=== PATIENT | female | born 1940 | race Caucasian/White ===

== ENCOUNTER 2018-08-24 11:21 | Inpatient (IN) | payer MEDICAID, MEDICARE ==
[2018-08-24] MEDS: ONDANSETRON 4 MG INJ IV (16:23)
[2018-08-24 16:24] LABS: URINE BLOOD (Dip) POC Trace-lysed (NEGATIVE); URINE KETONES (Dip) POC Negative (NEGATIVE); URINE LEUKOCYTE EST (Dip) POC Negative (NEGATIVE); URINE NITRITE (Dip) POC Negative (NEGATIVE); URINE TOTAL PROTEIN POC 3+ (NEGATIVE)
[2018-08-24] MEDS: SOD CHLORIDE 0.9% 500 ML IV (16:55)
[2018-08-24] MEDS ORDERED: HYDROCODONE/APAP (5/325) TAB PO (20:00)
[2018-08-24] MEDS ORDERED: ACETAMINOPHEN 325 MG TAB PO (20:00)
[2018-08-24] MEDS ORDERED: GLUCOSE GEL 15 GRAM TUBE PO ×2 (20:00)
[2018-08-24] MEDS ORDERED: GLUCOSE GEL 15 GRAM TUBE BUCCAL (20:00)
[2018-08-24] MEDS ORDERED: DEXTROSE 50% 50 ML SYRINGE IV ×2 (20:00)
[2018-08-24] MEDS ORDERED: GLUCAGON 1 MG INJ IM (20:00)
[2018-08-24] MEDS: SOD CHLORIDE 0.9% 1,000 ML IV (20:00)
[2018-08-24] MEDS ORDERED: NACL 0.9% 3 ML SYG IV (20:00)
[2018-08-24] MEDS ORDERED: ONDANSETRON 4 MG INJ IV (20:00)
[2018-08-24 20:31] LABS: PHOSPHORUS 6.4 mg/dl (2.5-4.9)
[2018-08-24] MEDS: FAMOTIDINE 20 MG INJ IV (21:28)
[2018-08-24 21:33] LABS: TROPONIN-I 0.697 ng/ml (0.000-0.120)
[2018-08-24] MEDS ORDERED: HEPARIN 1000 UNITS/ML 10 ML INJ IV (22:00)
[2018-08-24 22:26] LABS: ADD MAN DIFF? NO
[2018-08-24 22:31] LABS: WHITE BLOOD COUNT 5.9 10^3/ul (4.8-10.8)
[2018-08-24 22:31] LABS: BASOPHILS % 0.2 % (0.0-2.0); EOSINOPHILS % 0.2 % (0.0-7.0); HEMATOCRIT 29.1 % (37.0-47.0); HEMOGLOBIN 10.6 g/dl (12.0-16.0); LYMPHOCYTES # 1.1 10^3/ul (0.8-2.9); MEAN CORPUSCULAR HGB CONC 36.4 g/dl (32.0-37.0); MEAN CORPUSCULAR VOLUME 90.7 fl (82.0-101.0); MEAN PLATELET VOLUME 9.2 fl (7.4-10.4); MONOCYTE # 0.6 10^3/ul (0.3-0.9); MONOCYTES % 10.8 % (0.0-11.0); NEUTROPHIL # 4.1 10^3/ul (1.6-7.5); NEUTROPHILS % 69.5 % (39.0-77.0); PLATELET COUNT 157 10^3/UL (140-415); RED BLOOD COUNT 3.21 10^6/ul (4.20-5.40); RED CELL DISTRIBUTION WIDTH 12.1 % (11.5-14.5)
[2018-08-24 22:46] LABS: INR 0.96; PROTIME 12.9 Sec (11.9-14.9)
[2018-08-24 22:47] LABS: PARTIAL THROMBOPLASTIN TIME 26.4 Sec (23.0-35.0)
[2018-08-24] MEDS: ATORVASTATIN 80 MG TAB PO (23:39)
[2018-08-24] MEDS: ASPIRIN 81 MG TAB PO (23:39)
[2018-08-25 00:18] LABS: ANION GAP 12 (5-13); BLOOD UREA NITROGEN 57 mg/dl (7-20); CALCIUM 8.4 mg/dl (8.4-10.2); CARBON DIOXIDE 16 mmol/L (21-31); CHLORIDE 90 mmol/L (97-110); GLUCOSE 195 mg/dl (70-220); POTASSIUM 5.4 mmol/L (3.5-5.1)
[2018-08-25 00:22] LABS: SODIUM 118 mmol/L (135-144)
[2018-08-25 00:27] LABS: CREATININE 5.94 mg/dl (0.44-1.00)
[2018-08-25] MEDS: HEPARIN 1000 UNITS/ML 10 ML INJ IV (00:58)
[2018-08-25] MEDS: HEPARIN 25000 UNITS/250 ML 250 ML IV (00:59)
[2018-08-25 01:00] LABS: CK-MB 2.65 ng/ml (0.0-2.4)
[2018-08-25 01:03] LABS: TROPONIN-I 0.619 ng/ml (0.000-0.120)
[2018-08-25] MEDS: INSULIN ASPART [NOVOLOG] 3 ML PEN SC ×5 (01:06→22:02)
[2018-08-25] MEDS: SODIUM POLYSTYRENE 15 GM KIT (POWDER + SORBITOL) PO (01:12)
[2018-08-25] MEDS: ACCU-CHEK XX (02:00)
[2018-08-25 03:53] LABS: HEMATOCRIT 28.5 % (37.0-47.0); HEMOGLOBIN 10.5 g/dl (12.0-16.0)
[2018-08-25 04:26] LABS: HEMOGLOBIN A1C 10.1 % (0-5.9)
[2018-08-25 06:05] LABS: ADD UMIC YES; UR ASCORBIC ACID NEGATIVE (NEGATIVE); UR BILIRUBIN (Dip) NEGATIVE (NEGATIVE); UR BLOOD (Dip) 2+ mg/dL (NEGATIVE); UR CLARITY CLEAR (CLEAR); UR COLOR STRAW (YELLOW); UR GLUCOSE (Dip) 2+ mg/dL (NEGATIVE); UR KETONES (Dip) NEGATIVE (NEGATIVE); UR LEUKOCYTE ESTERASE (Dip) NEGATIVE Leu/ul (NEGATIVE); UR NITRITE (Dip) NEGATIVE (NEGATIVE); UR RBC 1 /HPF (0-5); UR SPECIFIC GRAVITY (Dip) 1.006 (1.003-1.030); UR TOTAL PROTEIN (Dip) 2+ mg/dl (NEGATIVE); UR UROBILINOGEN (Dip) NEGATIVE (NEGATIVE); UR WBC 1 /HPF (0-5)
[2018-08-25 06:42] LABS: LIPASE 377 U/L (23-300)
[2018-08-25 06:44] LABS: ALANINE AMINOTRANSFERASE 10 IU/L (13-69); ALBUMIN 3.3 g/dl (3.3-4.9); ALBUMIN/GLOBULIN RATIO 0.97; ALKALINE PHOSPHATASE 51 IU/L (42-121); ANION GAP 13 (5-13); ASPARTATE AMINO TRANSFERASE 26 IU/L (15-46); BILIRUBIN,INDIRECT 0.2 mg/dl (0-1.1); BILIRUBIN,TOTAL 0.2 mg/dl (0.2-1.3); BLOOD UREA NITROGEN 58 mg/dl (7-20); CALCIUM 8.3 mg/dl (8.4-10.2); CARBON DIOXIDE 15 mmol/L (21-31); CHLORIDE 93 mmol/L (97-110); GLUCOSE 141 mg/dl (70-220); MAGNESIUM 1.6 mg/dl (1.7-2.5); POTASSIUM 4.7 mmol/L (3.5-5.1); SODIUM 121 mmol/L (135-144); TOTAL PROTEIN 6.7 g/dl (6.1-8.1)
[2018-08-25 06:48] LABS: OCCULT BLOOD STOOL NEGATIVE (NEGATIVE)
[2018-08-25 06:51] LABS: TROPONIN-I 0.506 ng/ml (0.000-0.120)
[2018-08-25] MEDS ORDERED: ASPIRIN 81 MG TAB PO (09:00)
[2018-08-25 09:12] LABS: CREATININE,URINE RANDOM 25.41 mg/dl (20-320)
[2018-08-25 09:12] LABS: SODIUM,URINE RANDOM 23 mmol/L (30-90)
[2018-08-25] MEDS: SOD CHLORIDE 0.9% 1,000 ML IV ×2 (10:23→23:44)
[2018-08-25 11:00] LABS: CHOLESTEROL 206 mg/dl (100-200)
[2018-08-25 11:00] LABS: CHOL/HDL RATIO 4.4 RATIO; HDL CHOLESTEROL 46 mg/dl (33-92); LDL CHOLESTEROL,CALCULATED 116 mg/dl; TRIGLYCERIDES 222 mg/dl (0-149)
[2018-08-25] MEDS: INSULIN GLARGINE [LANTus] (100 UNITS/ML) SYG SC (12:13)
[2018-08-25] MEDS: LABETALOL HCL 20MG INJ IV ×2 (14:46→23:52)
[2018-08-25] MEDS ORDERED: NYSTATIN 30 GM POWDER BTL TOP (17:00)
[2018-08-25] MEDS: PANTOPRAZOLE 40 MG INJ IV (17:31)
[2018-08-25] MEDS: HEPARIN 5,000 UNIT/1 ML VIAL SC (22:01)
[2018-08-25] MEDS: ATORVASTATIN 80 MG TAB PO (22:11)
[2018-08-25] MEDS: MAGNESIUM OXIDE 400 MG TAB PO (23:44)
[2018-08-26] MEDS ORDERED: hydrALAzine 20 MG INJ IV (02:00)
[2018-08-26] MEDS: ACCU-CHEK XX (03:00)
[2018-08-26] MEDS: traZODone 50 MG TAB PO (03:23)
[2018-08-26 05:15] LABS: ADD MAN DIFF? NO
[2018-08-26 05:22] LABS: CREATINE KINASE 109 IU/L (23-200)
[2018-08-26 05:23] LABS: WHITE BLOOD COUNT 6.8 10^3/ul (4.8-10.8)
[2018-08-26 05:23] LABS: BASOPHILS % 0.1 % (0.0-2.0); EOSINOPHILS # 0.1 10^3/ul (0.0-0.5); EOSINOPHILS % 0.9 % (0.0-7.0); HEMATOCRIT 27.5 % (37.0-47.0); LYMPHOCYTES # 1.4 10^3/ul (0.8-2.9); LYMPHOCYTES % 20.1 % (15.0-51.0); MEAN CORPUSCULAR HEMOGLOBIN 32.7 pg (29.0-33.0); MEAN CORPUSCULAR VOLUME 89.9 fl (82.0-101.0); MONOCYTE # 0.7 10^3/ul (0.3-0.9); MONOCYTES % 10.2 % (0.0-11.0); NEUTROPHIL # 4.6 10^3/ul (1.6-7.5); NEUTROPHILS % 68.4 % (39.0-77.0); PLATELET COUNT 147 10^3/UL (140-415); RED BLOOD COUNT 3.06 10^6/ul (4.20-5.40); RED CELL DISTRIBUTION WIDTH 12.4 % (11.5-14.5)
[2018-08-26 05:29] LABS: ANION GAP 20 (5-13); BLOOD UREA NITROGEN 55 mg/dl (7-20); CALCIUM 7.7 mg/dl (8.4-10.2); CARBON DIOXIDE 14 mmol/L (21-31); CHLORIDE 88 mmol/L (97-110); CREATININE 6.84 mg/dl (0.44-1.00); GLUCOSE 101 mg/dl (70-220); MAGNESIUM 1.4 mg/dl (1.7-2.5); PHOSPHORUS 9.1 mg/dl (2.5-4.9); POTASSIUM 3.7 mmol/L (3.5-5.1); SODIUM 122 mmol/L (135-144)
[2018-08-26] MEDS: PANTOPRAZOLE 40 MG INJ IV ×2 (05:34→17:11)
[2018-08-26 05:35] LABS: CK INDEX 2.2; CK-MB 2.37 ng/ml (0.0-2.4)
[2018-08-26 05:58] LABS: TROPONIN-I 0.137 ng/ml (0.000-0.120)
[2018-08-26 06:11] LABS: MEAN CORPUSCULAR HGB CONC 36.4 g/dl (32.0-37.0)
[2018-08-26] MEDS: INSULIN ASPART [NOVOLOG] 3 ML PEN SC ×4 (07:58→21:00)
[2018-08-26] MEDS: INSULIN GLARGINE [LANTus] (100 UNITS/ML) SYG SC (08:01)
[2018-08-26] MEDS: HEPARIN 5,000 UNIT/1 ML VIAL SC ×2 (08:01→21:31)
[2018-08-26 09:33] LABS: AADO2 Arterial 25.7 mmHg (7.0-24.0); Allen Test ACCEPTAB; Arterial Base Excess -8.3 mmol/L (-3.0-3); Arterial Blood Gas Oxygen Sat 96.1 mmHG (95.0-100.0); Arterial COHb 0.3 % (0.0-3.0); Arterial Fraction of Oxyhgb 95.6 % (93.0-99.0); Arterial HCO3 15.5 mmol/L (22.0-26.0); Arterial MetHb 0.2 % (0.0-1.5); Arterial pCO2 26.6 mmhg (35-45); MODE ROOM AIR; Site Right Radial
[2018-08-26] MEDS: INFLUENZA VIRUS VACCINE 0.5 ML (DISPENSING) IM* (10:00)
[2018-08-26] MEDS: MAGNESIUM SULFATE 1 GM/D5W 100 ML IVPB (11:33)
[2018-08-26] MEDS: NIFEdipine (XL) 30 MG TAB PO ×2 (11:34→21:35)
[2018-08-26] MEDS: SEVELAMER CARBONATE 800 MG TABLET PO ×2 (12:03→17:11)
[2018-08-26] MEDS: SOD CHLORIDE 0.9% 1,000 ML IV (14:38)
[2018-08-26 17:13] LABS: CREATININE, RANDOM URINE 27 mg/dL (20-275); MICROALBUMIN 33.8 mg/dL; MICROALBUMIN/CREATININE RATIO 1252 (<30)
[2018-08-26] MEDS: ATORVASTATIN 80 MG TAB PO (21:34)
[2018-08-27] MEDS: ACCU-CHEK XX (02:00)
[2018-08-27] MEDS: SOD CHLORIDE 0.9% 1,000 ML IV ×2 (05:09→21:20)
[2018-08-27] MEDS: PANTOPRAZOLE 40 MG INJ IV (05:09)
[2018-08-27 05:53] LABS: ADD MAN DIFF? NO
[2018-08-27 05:57] LABS: BASOPHILS % 0.2 % (0.0-2.0); EOSINOPHILS # 0.1 10^3/ul (0.0-0.5); EOSINOPHILS % 2.7 % (0.0-7.0); HEMATOCRIT 27.3 % (37.0-47.0); LYMPHOCYTES # 1.2 10^3/ul (0.8-2.9); LYMPHOCYTES % 27.7 % (15.0-51.0); MEAN CORPUSCULAR HEMOGLOBIN 32.5 pg (29.0-33.0); MEAN CORPUSCULAR HGB CONC 36.6 g/dl (32.0-37.0); MEAN CORPUSCULAR VOLUME 88.6 fl (82.0-101.0); MEAN PLATELET VOLUME 10.8 fl (7.4-10.4); MONOCYTE # 0.5 10^3/ul (0.3-0.9); MONOCYTES % 10.6 % (0.0-11.0); NEUTROPHIL # 2.6 10^3/ul (1.6-7.5); NEUTROPHILS % 58.3 % (39.0-77.0); PLATELET COUNT 163 10^3/UL (140-415); RED BLOOD COUNT 3.08 10^6/ul (4.20-5.40); RED CELL DISTRIBUTION WIDTH 12.5 % (11.5-14.5)
[2018-08-27 05:57] LABS: WHITE BLOOD COUNT 4.4 10^3/ul (4.8-10.8)
[2018-08-27 06:34] LABS: ANION GAP 17 (5-13); BLOOD UREA NITROGEN 50 mg/dl (7-20); CALCIUM 7.4 mg/dl (8.4-10.2); CARBON DIOXIDE 16 mmol/L (21-31); CHLORIDE 91 mmol/L (97-110); GLUCOSE 83 mg/dl (70-220); MAGNESIUM 1.9 mg/dl (1.7-2.5); PHOSPHORUS 8.3 mg/dl (2.5-4.9); POTASSIUM 3.4 mmol/L (3.5-5.1); SODIUM 124 mmol/L (135-144)
[2018-08-27] MEDS: SEVELAMER CARBONATE 800 MG TABLET PO ×3 (07:44→17:14)
[2018-08-27] MEDS: INSULIN ASPART [NOVOLOG] 3 ML PEN SC ×4 (07:47→20:40)
[2018-08-27] MEDS: INSULIN GLARGINE [LANTus] (100 UNITS/ML) SYG SC (07:49)
[2018-08-27] MEDS: NIFEdipine (XL) 30 MG TAB PO ×2 (08:53→20:40)
[2018-08-27] MEDS: POTASSIUM CHLORIDE (SR) 20 MEQ TAB PO (08:53)
[2018-08-27] MEDS: HEPARIN 5,000 UNIT/1 ML VIAL SC ×2 (08:58→20:45)
[2018-08-27] MEDS: ASPIRIN (EC) 81 MG TAB PO (09:47)
[2018-08-27] MEDS: PANTOPRAZOLE (EC) 40 MG TAB PO (17:14)
[2018-08-27 18:28] LABS: HEPATITIS B SURFACE ANTIGEN NEGATIVE (NEGATIVE)
[2018-08-27 18:45] LABS: HEPATITIS B SURFACE ANTIBODY NEGATIVE (NEGATIVE)
[2018-08-27] MEDS: ATORVASTATIN 80 MG TAB PO (20:40)
[2018-08-27] MEDS: LIDOCAINE 1% (MPF) 5 ML VIAL (20:46)
[2018-08-27] MEDS: HEPARIN 1000 UNITS/ML 10 ML INJ (20:47)
[2018-08-28] MEDS: ACCU-CHEK XX (02:00)
[2018-08-28] MEDS: PANTOPRAZOLE (EC) 40 MG TAB PO ×2 (06:18→17:09)
[2018-08-28 06:21] LABS: ADD MAN DIFF? NO
[2018-08-28 06:24] LABS: WHITE BLOOD COUNT 4.8 10^3/ul (4.8-10.8)
[2018-08-28 06:24] LABS: BASOPHILS % 0.4 % (0.0-2.0); EOSINOPHILS # 0.1 10^3/ul (0.0-0.5); EOSINOPHILS % 2.7 % (0.0-7.0); HEMATOCRIT 30.7 % (37.0-47.0); HEMOGLOBIN 10.9 g/dl (12.0-16.0); LYMPHOCYTES # 1.2 10^3/ul (0.8-2.9); LYMPHOCYTES % 25.2 % (15.0-51.0); MEAN CORPUSCULAR HEMOGLOBIN 32.3 pg (29.0-33.0); MEAN CORPUSCULAR HGB CONC 35.5 g/dl (32.0-37.0); MEAN CORPUSCULAR VOLUME 91.1 fl (82.0-101.0); MEAN PLATELET VOLUME 10.3 fl (7.4-10.4); MONOCYTE # 0.6 10^3/ul (0.3-0.9); MONOCYTES % 11.7 % (0.0-11.0); NEUTROPHIL # 2.9 10^3/ul (1.6-7.5); NEUTROPHILS % 59.4 % (39.0-77.0); PLATELET COUNT 191 10^3/UL (140-415); RED BLOOD COUNT 3.37 10^6/ul (4.20-5.40); RED CELL DISTRIBUTION WIDTH 12.5 % (11.5-14.5)
[2018-08-28 06:58] LABS: ANION GAP 12 (5-13)
[2018-08-28 07:00] LABS: BLOOD UREA NITROGEN 29 mg/dl (7-20); CARBON DIOXIDE 22 mmol/L (21-31); CHLORIDE 96 mmol/L (97-110); CREATININE 4.66 mg/dl (0.44-1.00); GLUCOSE 96 mg/dl (70-220); MAGNESIUM 1.8 mg/dl (1.7-2.5); PHOSPHORUS 3.9 mg/dl (2.5-4.9); POTASSIUM 3.9 mmol/L (3.5-5.1); SODIUM 130 mmol/L (135-144)
[2018-08-28] MEDS: INSULIN ASPART [NOVOLOG] 3 ML PEN SC ×4 (07:38→21:00)
[2018-08-28] MEDS: SEVELAMER CARBONATE 800 MG TABLET PO ×3 (07:39→17:09)
[2018-08-28] MEDS: INSULIN GLARGINE [LANTus] (100 UNITS/ML) SYG SC (07:43)
[2018-08-28] MEDS: NIFEdipine (XL) 30 MG TAB PO ×2 (09:00→21:51)
[2018-08-28] MEDS: ASPIRIN (EC) 81 MG TAB PO (10:02)
[2018-08-28] MEDS: HEPARIN 5,000 UNIT/1 ML VIAL SC ×2 (10:06→22:02)
[2018-08-28] MEDS: ATORVASTATIN 80 MG TAB PO (21:50)
[2018-08-29] MEDS: ACCU-CHEK XX (02:00)
[2018-08-29] MEDS: PANTOPRAZOLE (EC) 40 MG TAB PO ×2 (05:31→17:03)
[2018-08-29 06:20] LABS: ADD MAN DIFF? NO
[2018-08-29 06:32] LABS: WHITE BLOOD COUNT 5.7 10^3/ul (4.8-10.8)
[2018-08-29 06:32] LABS: BASOPHILS % 0.5 % (0.0-2.0); EOSINOPHILS # 0.1 10^3/ul (0.0-0.5); EOSINOPHILS % 2.3 % (0.0-7.0); HEMATOCRIT 29.5 % (37.0-47.0); HEMOGLOBIN 10.3 g/dl (12.0-16.0); LYMPHOCYTES # 1.2 10^3/ul (0.8-2.9); LYMPHOCYTES % 20.1 % (15.0-51.0); MEAN CORPUSCULAR HEMOGLOBIN 32.7 pg (29.0-33.0); MEAN CORPUSCULAR HGB CONC 34.9 g/dl (32.0-37.0); MEAN CORPUSCULAR VOLUME 93.7 fl (82.0-101.0); MEAN PLATELET VOLUME 10.2 fl (7.4-10.4); MONOCYTE # 0.6 10^3/ul (0.3-0.9); MONOCYTES % 11.2 % (0.0-11.0); NEUTROPHIL # 3.8 10^3/ul (1.6-7.5); NEUTROPHILS % 65.7 % (39.0-77.0); PLATELET COUNT 217 10^3/UL (140-415); RED BLOOD COUNT 3.15 10^6/ul (4.20-5.40); RED CELL DISTRIBUTION WIDTH 12.6 % (11.5-14.5)
[2018-08-29 06:34] LABS: ANION GAP 12 (5-13); BLOOD UREA NITROGEN 21 mg/dl (7-20); CALCIUM 8.6 mg/dl (8.4-10.2); CARBON DIOXIDE 27 mmol/L (21-31); CHLORIDE 96 mmol/L (97-110); CREATININE 3.81 mg/dl (0.44-1.00); GLUCOSE 149 mg/dl (70-220); MAGNESIUM 1.9 mg/dl (1.7-2.5); PHOSPHORUS 3.2 mg/dl (2.5-4.9); POTASSIUM 3.9 mmol/L (3.5-5.1); SODIUM 135 mmol/L (135-144)
[2018-08-29] MEDS: SEVELAMER CARBONATE 800 MG TABLET PO ×3 (07:37→17:03)
[2018-08-29] MEDS: INSULIN GLARGINE [LANTus] (100 UNITS/ML) SYG SC (07:51)
[2018-08-29] MEDS: INSULIN ASPART [NOVOLOG] 3 ML PEN SC ×5 (07:52→21:00)
[2018-08-29] MEDS: ASPIRIN (EC) 81 MG TAB PO (08:40)
[2018-08-29] MEDS: NIFEdipine (XL) 30 MG TAB PO ×2 (08:40→21:00)
[2018-08-29] MEDS: HEPARIN 5,000 UNIT/1 ML VIAL SC ×2 (08:46→22:12)
[2018-08-29] MEDS ORDERED: HEPARIN 1000 UNITS/ML 10 ML INJ CATHETER (20:00)
[2018-08-29] MEDS: ATORVASTATIN 80 MG TAB PO (22:06)
[2018-08-29] MEDS: SENNA/DOCUSATE NA (8.6MG/50MG) TAB PO (22:06)
[2018-08-29] MEDS: HEPARIN 1000 UNITS/ML 10 ML INJ CATHETER (22:55)
[2018-08-30] MEDS: ACCU-CHEK XX (00:04)
[2018-08-30 05:08] LABS: ADD MAN DIFF? NO; HAAIG REFLEX REFLEX FILED
[2018-08-30 05:21] LABS: WHITE BLOOD COUNT 8.7 10^3/ul (4.8-10.8)
[2018-08-30 05:21] LABS: BASOPHILS % 0.3 % (0.0-2.0); EOSINOPHILS # 0.2 10^3/ul (0.0-0.5); EOSINOPHILS % 1.7 % (0.0-7.0); HEMATOCRIT 29.4 % (37.0-47.0); HEMOGLOBIN 10.1 g/dl (12.0-16.0); LYMPHOCYTES # 1.6 10^3/ul (0.8-2.9); LYMPHOCYTES % 18.6 % (15.0-51.0); MEAN CORPUSCULAR HEMOGLOBIN 32.5 pg (29.0-33.0); MEAN CORPUSCULAR HGB CONC 34.4 g/dl (32.0-37.0); MEAN CORPUSCULAR VOLUME 94.5 fl (82.0-101.0); MEAN PLATELET VOLUME 9.9 fl (7.4-10.4); MONOCYTE # 0.7 10^3/ul (0.3-0.9); MONOCYTES % 8.5 % (0.0-11.0); NEUTROPHIL # 6.1 10^3/ul (1.6-7.5); NEUTROPHILS % 70.6 % (39.0-77.0); PLATELET COUNT 220 10^3/UL (140-415); RED BLOOD COUNT 3.11 10^6/ul (4.20-5.40); RED CELL DISTRIBUTION WIDTH 12.4 % (11.5-14.5)
[2018-08-30 05:46] LABS: ANION GAP 11 (5-13); BLOOD UREA NITROGEN 15 mg/dl (7-20); CALCIUM 8.9 mg/dl (8.4-10.2); CARBON DIOXIDE 30 mmol/L (21-31); CHLORIDE 96 mmol/L (97-110); CREATININE 2.41 mg/dl (0.44-1.00); GLUCOSE 193 mg/dl (70-220); MAGNESIUM 1.8 mg/dl (1.7-2.5); POTASSIUM 3.8 mmol/L (3.5-5.1); SODIUM 137 mmol/L (135-144)
[2018-08-30 06:11] LABS: HEPATITIS B SURFACE ANTIGEN NEGATIVE (NEGATIVE)
[2018-08-30] MEDS: PANTOPRAZOLE (EC) 40 MG TAB PO ×2 (06:13→17:41)
[2018-08-30 06:28] LABS: HEPATITIS C VIRAL ANTIBODY NEGATIVE (NEGATIVE)
[2018-08-30 07:37] LABS: HEPATITIS B CORE ANTIBODY NEGATIVE (NEGATIVE)
[2018-08-30] MEDS: INSULIN ASPART [NOVOLOG] 3 ML PEN SC ×7 (08:11→20:49)
[2018-08-30] MEDS: INSULIN GLARGINE [LANTus] (100 UNITS/ML) SYG SC (08:13)
[2018-08-30] MEDS: ASPIRIN (EC) 81 MG TAB PO (08:13)
[2018-08-30] MEDS: HEPARIN 5,000 UNIT/1 ML VIAL SC ×2 (08:13→20:53)
[2018-08-30 09:41] LABS: COMPLEMENT C3 96 mg/dl (88-165); COMPLEMENT C4 46 mg/dl (14-44)
[2018-08-30] MEDS: NIFEdipine (XL) 30 MG TAB PO ×2 (10:48→23:00)
[2018-08-30 15:18] LABS: RHEUMATOID FACTOR NEGATIVE (NEGATIVE)
[2018-08-30] MEDS: SENNA/DOCUSATE NA (8.6MG/50MG) TAB PO (20:44)
[2018-08-30] MEDS: ATORVASTATIN 80 MG TAB PO (20:44)
[2018-08-31] MEDS: ACCU-CHEK XX (02:00)
[2018-08-31 05:00] LABS: ADD MAN DIFF? NO
[2018-08-31 05:09] LABS: BASOPHILS % 0.3 % (0.0-2.0); EOSINOPHILS # 0.1 10^3/ul (0.0-0.5); EOSINOPHILS % 0.8 % (0.0-7.0); HEMATOCRIT 27.9 % (37.0-47.0); HEMOGLOBIN 9.8 g/dl (12.0-16.0); LYMPHOCYTES # 2.4 10^3/ul (0.8-2.9); LYMPHOCYTES % 19.9 % (15.0-51.0); MEAN CORPUSCULAR HEMOGLOBIN 33.4 pg (29.0-33.0); MEAN CORPUSCULAR HGB CONC 35.1 g/dl (32.0-37.0); MEAN CORPUSCULAR VOLUME 95.2 fl (82.0-101.0); MEAN PLATELET VOLUME 9.7 fl (7.4-10.4); MONOCYTES % 8.6 % (0.0-11.0); NEUTROPHIL # 8.3 10^3/ul (1.6-7.5); NEUTROPHILS % 69.8 % (39.0-77.0); PLATELET COUNT 230 10^3/UL (140-415); RED BLOOD COUNT 2.93 10^6/ul (4.20-5.40); RED CELL DISTRIBUTION WIDTH 12.3 % (11.5-14.5)
[2018-08-31 05:09] LABS: WHITE BLOOD COUNT 11.9 10^3/ul (4.8-10.8)
[2018-08-31] MEDS: PANTOPRAZOLE (EC) 40 MG TAB PO ×2 (05:12→18:13)
[2018-08-31 05:26] LABS: ANION GAP 14 (5-13); BLOOD UREA NITROGEN 31 mg/dl (7-20); CARBON DIOXIDE 26 mmol/L (21-31); CHLORIDE 93 mmol/L (97-110); CREATININE 3.65 mg/dl (0.44-1.00); GLUCOSE 188 mg/dl (70-220); MAGNESIUM 1.7 mg/dl (1.7-2.5); PHOSPHORUS 2.8 mg/dl (2.5-4.9); POTASSIUM 3.5 mmol/L (3.5-5.1); SODIUM 133 mmol/L (135-144)
[2018-08-31] MEDS: HEPARIN 5,000 UNIT/1 ML VIAL SC ×3 (09:00→23:10)
[2018-08-31] MEDS: ASPIRIN (EC) 81 MG TAB PO (09:00)
[2018-08-31] MEDS: NIFEdipine (XL) 30 MG TAB PO ×2 (10:56→21:27)
[2018-08-31] MEDS: INSULIN ASPART [NOVOLOG] 3 ML PEN SC ×7 (10:58→21:00)
[2018-08-31] MEDS: INSULIN GLARGINE [LANTus] (100 UNITS/ML) SYG SC (11:00)
[2018-08-31] MEDS: ATORVASTATIN 80 MG TAB PO (21:27)
[2018-08-31] MEDS: SENNA/DOCUSATE NA (8.6MG/50MG) TAB PO (21:28)
[2018-09-01] MEDS: ACCU-CHEK XX (02:00)
[2018-09-01] MEDS: PANTOPRAZOLE (EC) 40 MG TAB PO ×2 (05:16→18:36)
[2018-09-01 05:48] LABS: ADD MAN DIFF? NO
[2018-09-01 05:57] LABS: WHITE BLOOD COUNT 9.9 10^3/ul (4.8-10.8)
[2018-09-01 05:57] LABS: BASOPHILS % 0.2 % (0.0-2.0); EOSINOPHILS # 0.2 10^3/ul (0.0-0.5); EOSINOPHILS % 1.9 % (0.0-7.0); HEMATOCRIT 27.7 % (37.0-47.0); HEMOGLOBIN 9.5 g/dl (12.0-16.0); LYMPHOCYTES # 2.1 10^3/ul (0.8-2.9); LYMPHOCYTES % 20.9 % (15.0-51.0); MEAN CORPUSCULAR HEMOGLOBIN 32.5 pg (29.0-33.0); MEAN CORPUSCULAR HGB CONC 34.3 g/dl (32.0-37.0); MEAN CORPUSCULAR VOLUME 94.9 fl (82.0-101.0); MEAN PLATELET VOLUME 10.1 fl (7.4-10.4); MONOCYTE # 0.9 10^3/ul (0.3-0.9); MONOCYTES % 9.1 % (0.0-11.0); NEUTROPHIL # 6.7 10^3/ul (1.6-7.5); NEUTROPHILS % 67.3 % (39.0-77.0); PLATELET COUNT 248 10^3/UL (140-415); RED BLOOD COUNT 2.92 10^6/ul (4.20-5.40); RED CELL DISTRIBUTION WIDTH 12.4 % (11.5-14.5)
[2018-09-01 06:23] LABS: ANION GAP 9 (5-13); BLOOD UREA NITROGEN 47 mg/dl (7-20); CALCIUM 9.3 mg/dl (8.4-10.2); CARBON DIOXIDE 28 mmol/L (21-31); CHLORIDE 97 mmol/L (97-110); CREATININE 4.14 mg/dl (0.44-1.00); GLUCOSE 157 mg/dl (70-220); POTASSIUM 3.3 mmol/L (3.5-5.1); SODIUM 134 mmol/L (135-144)
[2018-09-01 06:32] LABS: PHOSPHORUS 3.9 mg/dl (2.5-4.9)
[2018-09-01 06:32] LABS: MAGNESIUM 1.8 mg/dl (1.7-2.5)
[2018-09-01] MEDS: INSULIN GLARGINE [LANTus] (100 UNITS/ML) SYG SC (08:52)
[2018-09-01] MEDS: INSULIN ASPART [NOVOLOG] 3 ML PEN SC ×6 (08:53→17:55)
[2018-09-01] MEDS: HEPARIN 5,000 UNIT/1 ML VIAL SC (08:54)
[2018-09-01] MEDS: NIFEdipine (XL) 30 MG TAB PO (09:22)
[2018-09-01] MEDS: ASPIRIN (EC) 81 MG TAB PO (09:22)
[2018-09-01] MEDS: POTASSIUM CHLORIDE (SR) 20 MEQ TAB PO (09:23)
[2018-09-01 13:51] LABS: ANCA SCREEN NEGATIVE (NEGATIVE)
[2018-09-01 15:21] LABS: MYELOPEROXIDASE ANTIBODY <1.0 AI; PROTEINASE-3 ANTIBODY <1.0 AI
[2018-09-01 16:11] LABS: ANTI-DNA (DOUBLE STRANDED) <95 U/mL (< 301)
[2018-09-01] MEDS: HEPARIN 1000 UNITS/ML 10 ML INJ CATHETER (18:33)
[2018-09-01 20:48] LABS: ANA SCREEN POSITIVE (NEGATIVE)
[2018-09-02 20:17] LABS: ANA PATTERN SPECKLED
== END 2018-09-01 19:40 | disposition home or self-care (01) | DRG 673 ==
LOC: E/R 11:21 → MS1 08-29 23:05 → 6WM 17:46
PROVIDERS: Internal Medicine
PROC: 0JH63XZ Insertion of Tunneled Vascular Access Device into Chest Subcutaneous Tissue and Fascia, Percutaneous Approach (ICD-10-PCS; principal; 2018-08-31 09:30)
PROC: 02PA33Z Removal of Infusion Device from Heart, Percutaneous Approach (ICD-10-PCS; 2018-08-31 09:30)
PROC: 02H633Z Insertion of Infusion Device into Right Atrium, Percutaneous Approach (ICD-10-PCS; 2018-08-31 09:30)
PROC: 5A1D70Z Performance of Urinary Filtration, Intermittent, Less than 6 Hours Per Day (ICD-10-PCS; 2018-08-31 09:33)
PROC: 4A033R1 Measurement of Arterial Saturation, Peripheral, Percutaneous Approach (ICD-10-PCS; 2018-08-31 09:33)
PROC: B543ZZA Ultrasonography of Right Jugular Veins, Guidance (ICD-10-PCS; 2018-08-31 09:33)
PROC: 02H633Z Insertion of Infusion Device into Right Atrium, Percutaneous Approach (ICD-10-PCS; 2018-08-31 09:33)
PROC: B214YZZ Fluoroscopy of Right Heart using Other Contrast (ICD-10-PCS; 2018-08-31 09:33)
DX: N17.9 Acute kidney failure, unspecified (principal); I21.4 Non-ST elevation (NSTEMI) myocardial infarction; E87.1 Hypo-osmolality and hyponatremia; E87.2 Acidosis; G93.40 Encephalopathy, unspecified; E86.0 Dehydration; N14.4 Toxic nephropathy, not elsewhere classified; C50.912 Malignant neoplasm of unspecified site of left female breast; E87.5 Hyperkalemia; E11.22 Type 2 diabetes mellitus with diabetic chronic kidney disease; I12.9 Hypertensive chronic kidney disease with stage 1 through stage 4 chronic kidney disease, or unspecified chronic kidney disease; N18.9 Chronic kidney disease, unspecified; E83.42 Hypomagnesemia; D63.8 Anemia in other chronic diseases classified elsewhere; E78.00 Pure hypercholesterolemia, unspecified; Z79.84 Long term (current) use of oral hypoglycemic drugs; Z90.49 Acquired absence of other specified parts of digestive tract
CPT/HCPCS: 36415; 36556; 36600; 71045; 74176; 76775; 76942; 80048; 80053; 80061; 81001; 81003; 82043; 82270; 82550; 82553; 82595; 82803; 82962; 83036; 83690; 83735; 84100; 84155; 84300; 84484; 85014; 85018; 85025; 85610; 85730; 86021; 86038; 86160; 86226; 86430; 86704; 86706; 86709; 86803; 87340; 90686; 90935; 93005; 93306; 96374; 97110; 97161; 97530; 99285-25

== ENCOUNTER 2018-12-26 12:11 | Emergency (ER) | payer OTHER, MEDICAID | END 2018-12-26 12:56 | disposition home or self-care (01) | LOC: E/R 12:11 | DX: L73.8 Other specified follicular disorders (principal); I12.0 Hypertensive chronic kidney disease with stage 5 chronic kidney disease or end stage renal disease; N18.6 End stage renal disease; E11.22 Type 2 diabetes mellitus with diabetic chronic kidney disease; Z79.84 Long term (current) use of oral hypoglycemic drugs; Z85.3 Personal history of malignant neoplasm of breast; Z99.2 Dependence on renal dialysis | CPT/HCPCS: 99283; Z7502 ==

== ENCOUNTER 2019-03-18 09:50 | Day surgery (SDC) | payer OTHER, MEDICAID ==
[2019-03-18] MEDS: CEFAZOLIN 1 GM/50 ML (PMX) 50 ML IVPB (06:00)
[~2019-03-18 09:50] MED LIST: CEFAZOLIN 2 GM/50 ML (PMX) 50 ML IVPB; SOD CHLORIDE 0.9% 1,000 ML IV
[2019-03-18 11:06] LABS: ANION GAP 8 (5-13); CARBON DIOXIDE 28 mmol/L (21-31); CHLORIDE 98 mmol/L (97-110); GLUCOSE 233 mg/dl (70-220); POTASSIUM 4.4 mmol/L (3.5-5.1)
[2019-03-18] MEDS: SOD CHLORIDE 0.9% 1,000 ML IV (11:08)
[2019-03-18 11:19] LABS: BLOOD UREA NITROGEN 43 mg/dl (7-20); CREATININE 2.29 mg/dl (0.44-1.00); SODIUM 134 mmol/L (135-144)
[2019-03-18] MEDS ORDERED: FENTAnyl 50 MCG/ML VIAL (13:15)
[2019-03-18] MEDS ORDERED: METOCLOPRAMIDE 10 MG INJ (13:15)
[2019-03-18] MEDS ORDERED: PROPOFOL 20 ML (13:15)
[2019-03-18] MEDS ORDERED: CEFAZOLIN 1 GM INJ (13:16)
[2019-03-18] MEDS ORDERED: ONDANSETRON 4 MG INJ (13:16)
[2019-03-18] MEDS ORDERED: MEPERIDINE 25 MG INJ IV (13:30)
[2019-03-18] MEDS ORDERED: OXYCODONE/ACETAMINOPHEN (5/325) TAB PO (13:30)
[2019-03-18] MEDS ORDERED: DIPHENHYDRAMINE 50 MG INJ IV (13:30)
[2019-03-18] MEDS ORDERED: HYDROmorphONE 1 MG/5 ML IV SYRINGE IV ×3 (13:30)
[2019-03-18] MEDS ORDERED: FENTAnyl 50 MCG/ML VIAL IV ×2 (13:30)
[2019-03-18] MEDS ORDERED: ACETAMINOPHEN 1000MG/100ML IV 100 ML IVPB (14:30)
[2019-03-18] MEDS ORDERED: morphine 2 MG INJ IV (14:30)
[2019-03-18] MEDS ORDERED: ONDANSETRON 4 MG INJ IV (14:30)
[2019-03-18] MEDS: FENTAnyl 50 MCG/ML VIAL IV ×2 (14:48→15:29)
[2019-03-18] MEDS ORDERED: hydrALAzine 20 MG INJ (14:58)
[2019-03-18] MEDS: hydrALAzine 20 MG INJ IV ×2 (14:59→15:12)
[2019-03-18] MEDS: ONDANSETRON 4 MG INJ IV (15:36)
[2019-03-18] MEDS: D5W-0.45 NACL + KCL 20 MEQ 1,000 ML IV (16:50)
[2019-03-18] MEDS ORDERED: DEXTROSE 50% 50 ML SYRINGE IV ×2 (18:30)
[2019-03-18] MEDS ORDERED: GLUCOSE GEL 15 GRAM TUBE BUCCAL (18:30)
[2019-03-18] MEDS ORDERED: GLUCAGON 1 MG INJ IM (18:30)
[2019-03-18] MEDS ORDERED: GLUCOSE GEL 15 GRAM TUBE PO ×2 (18:30)
[2019-03-18] MEDS: INSULIN ASPART [NOVOLOG] 3 ML PEN SC ×2 (21:00→23:43)
[2019-03-18] MEDS: ATORVASTATIN 80 MG TAB PO (22:03)
[2019-03-18] MEDS: INSULIN GLARGINE [LANTus] (100 UNITS/ML) SYG SC (22:43)
[2019-03-18 23:19] LABS: GLUCOSE 443 mg/dl (70-220)
[2019-03-18] MEDS: ACCU-CHEK XX (23:44)
[2019-03-18] MEDS: NIFEdipine (XL) 30 MG TAB PO (23:56)
[2019-03-19] MEDS: ACCU-CHEK XX ×2 (02:00→14:57)
[2019-03-19] MEDS: 1/2 NS + KCL 20 MEQ 1,000 ML IV (04:45)
[2019-03-19 06:21] LABS: ADD MAN DIFF? NO
[2019-03-19 06:26] LABS: WHITE BLOOD COUNT 8.1 10^3/ul (4.8-10.8)
[2019-03-19 06:26] LABS: BASOPHILS % 0.1 % (0.0-2.0); EOSINOPHILS % 0.1 % (0.0-7.0); HEMOGLOBIN 11.5 g/dl (12.0-16.0); LYMPHOCYTES # 1.7 10^3/ul (0.8-2.9); LYMPHOCYTES % 21.2 % (15.0-51.0); MEAN CORPUSCULAR HEMOGLOBIN 33.3 pg (29.0-33.0); MEAN CORPUSCULAR HGB CONC 32.9 g/dl (32.0-37.0); MEAN CORPUSCULAR VOLUME 101.4 fl (82.0-101.0); MONOCYTE # 0.8 10^3/ul (0.3-0.9); MONOCYTES % 10.3 % (0.0-11.0); NEUTROPHIL # 5.5 10^3/ul (1.6-7.5); NEUTROPHILS % 68.1 % (39.0-77.0); PLATELET COUNT 189 10^3/UL (140-415); RED BLOOD COUNT 3.45 10^6/ul (4.20-5.40); RED CELL DISTRIBUTION WIDTH 14.5 % (11.5-14.5)
[2019-03-19 06:55] LABS: ANION GAP 8 (5-13); BLOOD UREA NITROGEN 41 mg/dl (7-20); CALCIUM 9.5 mg/dl (8.4-10.2); CARBON DIOXIDE 26 mmol/L (21-31); CHLORIDE 103 mmol/L (97-110); CREATININE 2.12 mg/dl (0.44-1.00); GLUCOSE 135 mg/dl (70-220); POTASSIUM 4.7 mmol/L (3.5-5.1); SODIUM 137 mmol/L (135-144)
[2019-03-19] MEDS ORDERED: glipiZIDE 5 MG TAB PO (07:00)
[2019-03-19] MEDS: INSULIN ASPART [NOVOLOG] 3 ML PEN SC ×6 (08:15→20:42)
[2019-03-19] MEDS: NIFEdipine (XL) 30 MG TAB PO ×2 (09:20→20:31)
[2019-03-19 11:39] LABS: HEPATITIS B SURFACE ANTIGEN NEGATIVE (NEGATIVE)
[2019-03-19] MEDS: ATORVASTATIN 80 MG TAB PO (20:30)
[2019-03-19] MEDS: MINERAL OIL 30ML CUP PO (20:31)
[2019-03-19] MEDS: INSULIN GLARGINE [LANTus] (100 UNITS/ML) SYG SC (20:43)
[2019-03-20] MEDS: ACCU-CHEK XX (02:00)
[2019-03-20 06:04] LABS: ADD MAN DIFF? NO
[2019-03-20 06:20] LABS: WHITE BLOOD COUNT 7.4 10^3/ul (4.8-10.8)
[2019-03-20 06:21] LABS: BASOPHILS % 0.1 % (0.0-2.0); EOSINOPHILS # 0.2 10^3/ul (0.0-0.5); EOSINOPHILS % 2.2 % (0.0-7.0); HEMATOCRIT 33.3 % (37.0-47.0); HEMOGLOBIN 10.6 g/dl (12.0-16.0); LYMPHOCYTES # 2.1 10^3/ul (0.8-2.9); LYMPHOCYTES % 28.2 % (15.0-51.0); MEAN CORPUSCULAR HEMOGLOBIN 32.5 pg (29.0-33.0); MEAN CORPUSCULAR HGB CONC 31.8 g/dl (32.0-37.0); MEAN CORPUSCULAR VOLUME 102.1 fl (82.0-101.0); MEAN PLATELET VOLUME 10.4 fl (7.4-10.4); MONOCYTE # 0.7 10^3/ul (0.3-0.9); MONOCYTES % 9.3 % (0.0-11.0); NEUTROPHIL # 4.5 10^3/ul (1.6-7.5); NEUTROPHILS % 59.9 % (39.0-77.0); PLATELET COUNT 167 10^3/UL (140-415); RED BLOOD COUNT 3.26 10^6/ul (4.20-5.40); RED CELL DISTRIBUTION WIDTH 14.5 % (11.5-14.5)
[2019-03-20 06:43] LABS: INR 1.08; PROTIME 14.1 Sec (11.9-14.9); PT RATIO 1.1
[2019-03-20 06:44] LABS: PARTIAL THROMBOPLASTIN TIME 29.2 Sec (23.0-35.0)
[2019-03-20 06:46] LABS: ALANINE AMINOTRANSFERASE 11 IU/L (13-69); ALBUMIN 3.6 g/dl (3.3-4.9); ALBUMIN/GLOBULIN RATIO 0.92; ALKALINE PHOSPHATASE 73 IU/L (42-121); ANION GAP 5 (5-13); ASPARTATE AMINO TRANSFERASE 25 IU/L (15-46); BILIRUBIN,INDIRECT 0.4 mg/dl (0-1.1); BILIRUBIN,TOTAL 0.4 mg/dl (0.2-1.3); BLOOD UREA NITROGEN 31 mg/dl (7-20); CALCIUM 9.1 mg/dl (8.4-10.2); CARBON DIOXIDE 27 mmol/L (21-31); CHLORIDE 104 mmol/L (97-110); CREATININE 2.02 mg/dl (0.44-1.00); GLUCOSE 193 mg/dl (70-220); POTASSIUM 4.7 mmol/L (3.5-5.1); SODIUM 136 mmol/L (135-144); TOTAL PROTEIN 7.5 g/dl (6.1-8.1)
[2019-03-20] MEDS: INSULIN ASPART [NOVOLOG] 3 ML PEN SC ×6 (08:06→17:48)
[2019-03-20] MEDS: NIFEdipine (XL) 30 MG TAB PO (08:49)
== END 2019-03-20 18:45 | disposition home or self-care (01) ==
LOC: SDS 09:50 → REC 16:30 → SDS 03-20 18:45 → REC 14:25 → 2NE 14:38
DX: C50.912 Malignant neoplasm of unspecified site of left female breast (principal); C77.3 Secondary and unspecified malignant neoplasm of axilla and upper limb lymph nodes; I12.0 Hypertensive chronic kidney disease with stage 5 chronic kidney disease or end stage renal disease; N18.6 End stage renal disease; Z99.2 Dependence on renal dialysis; E11.9 Type 2 diabetes mellitus without complications
CPT/HCPCS: 19260; 80048; 80053; 82947; 82962; 85025; 85610; 85730; 87340; 88307; 90935